=== PATIENT | female | born 1995 | race Caucasian/White ===

== ENCOUNTER 2023-04-14 13:50 | Emergency (ER) | payer OTHER, SELFPAY ==
[2023-04-14 13:55] VITALS: BP 159/97; PULSE 124; RESP 18; TEMP 36.3; O2SAT 95; BMI 41.1
--- NOTE | 2023-04-14 14:02 | ED_ITS ---
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 She is now 0 not able to swallow and feels like part of the cup [employer] steak is stuck in her esophagus. She is not able to swallow any liquid or her saliva and comes in holding a bag full of liquid and saliva. She has had no blood in her vomitus or spit up. She has no abdominal pain. She has minimal symptoms of chronic GERD but is not on any medication. She has had no similar symptoms previously. She feels like the obstruction is in the proximal esophagus. 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 #30 tabs Allergies Allergy/AdvReac Type Severity Reaction Status Date / Time No Known Drug Allergies Allergy Verified 04/14/23 13:57 Review of Systems Status of ROS: Reports: 10 or more systems reviewed and unremarkable except as noted in History and below [facility] Social History Smoking Status: Never smoker How often do you have a drink containing alcohol: 2-4 times a month How many standard drinks containing alcohol do you have on a typical day: 3 or 4 AUDIT-C Alcohol total score: 3 Non-prescribed substance use: denies use service: No Exam Narrative: Exam Narrative: EXAM GENERAL: Patient appears to be in moderate distress. EYES: No scleral icterus. LYMPH: No supraclavicular or cervical lymphadenopathy. SKIN: Visible skin seen during exam normal or with benign process only. EXT: No dependent lower extremity pedal edema. HEART: Regular rate and rhythm with no murmurs, rubs, or gallops. LUNGS: Clear to auscultation bilaterally with no crackles or wheezes. ABD: Soft, non tender, non distended. PSYCH: Good eye contact, speech is not pressured. Const: Vital Signs, click to edit/add: Vital Signs - 24 hr 04/14/23 13:55 Temperature 97.4 F L Pulse Rate [Right Pulse Oximeter] 124 H Respiratory Rate 18 Blood Pressure [Ri ght Upper Arm] 159/97 H Pulse Oximetry 95 Oxygen Delivery Me thod Room Air Course Course Hospital Course: Patient seen examined EZ gas given. Vital Signs Vital signs: Initial Vital Signs Temperature 97.4 F L 04/14/23 13:55 Temperature Source Temporal Artery Scan 04/14/23 13:55 Pulse Rate 124 H 04/14/23 13:55 Respiratory Rate 18 04/14/23 13:55 Blood Pressure 159/97 H 04/14/23 13:55 Blood Pressure Mean 117 H 04/14/23 13:55 Blood Pressure Position Sitting 04/14/23 13:55 Pulse Oximetry 95 04/14/23 13:55 Oxygen Delivery Method Room Air 04/14/23 13:55 Vital Signs Temperature 97.4 F L 04/14/23 13:55 Pulse Rate 124 H 04/14/23 13:55 Respiratory Rate 18 04/14/23 13:55 Blood Pressure 159/97 H 04/14/23 13:55 Pulse Oximetry 95 04/14/23 13:55 Oxygen Delivery Method Room Air 04/14/23 13:55 Temperature 97.4 F L 04/14/23 13:55 Pulse Rate 124 H 04/14/23 13:55 Respiratory Rate 18 04/14/23 13:55 Blood Pressure 159/97 H 04/14/23 13:55 Pulse Oximetry 95 04/14/23 13:55 Oxygen Delivery Method Room Air 04/14/23 13:55 Medical Decision Making MDM Narrative Medical decision making narrative: Patient is a 27-year-old woman who presents with her 1st episode of esophageal obstruction. The obstruction is been present for approximately 2 hours. Patient was given easy gas and forcefully vomited the obstruction. There is no signs of perforation. At this time will place on clear liquid diet with proton pump inhibitor as well as outpatient follow-up for outpatient EGD in the next several weeks. Discharge Plan Discharge Clinical Impression: Acute esophageal obstruction Patient Disposition: Home, Self-Care Condition: Stable Instructions: Food Impaction (ED) Additional Instructions: Soft diet for 4 days Omeprazole per directions at your pharmacy Follow-up Dr. Almaguer next week Activity Level: No Restrictions Discharge Diet: Regular Prescriptions: New omeprazole 20 mg tablet,delayed release (DR/EC) 20 mg PO DAILY Qty: 30 2RF Follow Up/Referrals: Provider,Not a Local [Primary Care Provider] - Stand Alone Forms: [facility] Info Instructions
--- NOTE | 2023-04-14 14:10 | ED.NURSE ---
pt given EZ gas in water, induced vomiting, pt stated I think its gone, i feel better drinking water now
== END 2023-04-14 14:38 | disposition home or self-care (01) ==
PROVIDERS: Emergency Provider Internal Medicine
DX: K22.2 Esophageal obstruction (principal)
CPT/HCPCS: 99282; 99283